=== PATIENT | male | born 1985 ===

== ENCOUNTER 2021-08-09 11:22 | Emergency (ER) | payer SELFPAY ==
[2021-08-09 11:30] VITALS: BP 175/93
[2021-08-09] MEDS ORDERED: LIDOCAINE (1%) 10 MG/1 ML VIAL 20 ML MDV INFILTRATI ONE (11:30)
--- NOTE | 2021-08-09 11:36 | Emergency Department Report ---
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 Patient states he cut the finger with a meat loiner while at work today. He was seen at an urgent care and referred to the ED for possible tendon laceration. He denies any loss of sensation and states his pain is mild. He states he has difficulty extending his thumb. Patient states his tetanus vaccination was updated at the urgent care today. 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 Other details as noted in HPI Musculoskeletal: denies: joint swelling, arthralgia Skin: denies: change in color Neurological: denies: numbness, paresthesias Hematological/Lymphatic: denies: easy bleeding ED Past Medical Hx - Medications Home Medications: Home Medications Medication Instructions Recorded Confirmed Last Taken Type Ibuprofen [Motrin 800 MG tab] 800 mg PO Q8HR PRN #20 tablet 08/09/21 Unknown Rx cephALEXin [Keflex] 500 mg PO Q8HR 7 Days #21 cap 08/09/21 Unknown Rx ED Physical Exam - General General appearance: alert, in no apparent distress - Head Head exam: Present: atraumatic, normocephalic - Eye Eye exam: Present: normal appearance - Respiratory Respiratory exam: Absent: respiratory distress - Cardiovascular Cardiovascular Exam: Present: regular rate - Neurological Exam Neurological exam: Present: alert, oriented X3, normal gait - Psychiatric Psychiatric exam: Present: normal affect, normal mood - Skin Skin exam: Present: warm, dry, normal color, other (Laceration noted to dorsal aspect of the first MCP joint; thumb is stuck in a flexed position and patient is unable to extend the thumb or abduct/abduct). Absent: rash ED Course Vital Signs 08/09/21 11:29 Temperature 98.4 F Pulse Rate 89 Respiratory 19 Rate Blood Pressure 175/93 O2 Sat by Pulse 95 Oximetry - Laceration /Wound Repair Finger Wound Length (cm): 3 Wound's Depth, Shape: into muscle, linear Wound Explored: clean Irrigated w/ Saline (ccs): 100 Betadine Prep?: Yes Anesthesia: 1% Lidocaine Volume Anesthetic (ccs): 5 Wound Repaired With: sutures Suture Size/Type: 3:0, proline Layer Closure?: Yes (Flexor tendon) Deep Layer Suture Size/Type: 4:0, chromic Number Deep Layer Sutures: 1 Sterile Dressing Applied?: Yes Progress: Minimal bleeding occurred. Patient tolerated procedure well without any immediate complications. ED Medical Decision Making - Radiology Data Radiology results: report reviewed RIGHT HAND 4 VIEW(S) INDICATION / CLINICAL INFORMATION: dorsal lac to 1 st MCP, unable to extend digit COMPARISON: None available. FINDINGS: BONES / JOINT(S): No acute fracture or subluxation. No significant arthritis. SOFT TISSUES: Bandage overlying the dorsum of the hand without definite laceration identified. ADDITIONAL FINDINGS: Given patient history of inability to extend the first digit, MRI of the hand without contrast might be of benefit to further evaluate first digit extensor mechanism. - Medical Decision Making 36-year-old male patient presents for a laceration to the right thumb today. Patient states he cut the finger with a meat loiner while at work today. He was seen at an urgent care and referred to the ED for possible tendon laceration. He denies any loss of sensation and states his pain is mild. He states he has difficulty extending his thumb. Patient states his tetanus vaccination was updated at the urgent care today. Laceration repair with one deep suture placed. Thumb placed in a dynamic splint. Explained in detail importance of follow-up with hand surgery within the next 24 hours. Patient informed to speak with his company about Workmen's Comp. and specifically what hand surgeon to be referred to. Patient also provi ded with hand surgery referral. Discussed wound care and signs and symptoms that should prompt immediate return to the emergency department in detail with patient verbalized understanding. She is well-appearing stable for discharge home. Critical care attestation.: If time is entered above; I have spent that time in minutes in the direct care of this critically ill patient, excluding procedure time. ED Disposition Clinical Impression: Laceration of thumb, right, Injury of tendon of right hand, Elevated blood pressure reading Disposition: HOME / SELF CARE / HOMELESS Is pt being admited?: No Condition: Stable Instructions: Laceration Care, Adult Prescriptions: cephALEXin [Keflex] 500 mg PO Q8HR 7 Days #21 cap Ibuprofen [Motrin 800 MG tab] 800 mg PO Q8HR PRN #20 tablet PRN Reason: pain Referrals: [facility] [Provider Group] - MARIANELA Print Language: [id number]
--- NOTE | 2021-08-09 12:40 | XRay Report ---
RIGHT HAND 4 VIEW(S) INDICATION / CLINICAL INFORMATION: dorsal lac to 1 st MCP, unable to extend digit COMPARISON: None available. FINDINGS: BONES / JOINT(S): No acute fracture or subluxation. No significant arthritis. SOFT TISSUES: Bandage overlying the dorsum of the hand without definite laceration identified. ADDITIONAL FINDINGS: Given patient history of inability to extend the first digit, MRI of the hand wi thout contrast might be of benefit to further evaluate first digit extensor mechanism. Signer Name: Wagner Valero MD Signed: 08/09/2021 12:35 PM Workstation Name: [email or web address]
== END 2021-08-09 14:07 | disposition home or self-care (01) ==
LOC: ED 11:22
DX: S61.011A Laceration without foreign body of right thumb without damage to nail, initial encounter (principal); S69.91XA Unspecified injury of right wrist, hand and finger(s), initial encounter; R03.0 Elevated blood-pressure reading, without diagnosis of hypertension; W26.0XXA Contact with knife, initial encounter; Y93.89 Activity, other specified; Y92.89 Other specified places as the place of occurrence of the external cause; Y99.8 Other external cause status
CPT/HCPCS: 99283